=== PATIENT | male | born 1995 | race Two or more races ===

== ENCOUNTER 2017-04-26 20:02 | Emergency (ER) | payer OTHER ==
[2017-04-26 20:16] VITALS: RESP 18; TEMP 98.4
--- NOTE | 2017-04-26 21:46 | EDPHY ---
H & P Stated Complaint: Lightheaded, dizzy, since [place] 2 w[place]. HPI/ROS: HPI CHIEF COMPLAINT: Lightheadedness after running HISTORY OF PRESENT ILLNESS: This patient very pleasant 22-year-old male, denies any significant medical history is from [facility], he is a [employer] student, he went for 20 minutes this evening. He states shortly after he got lightheaded and dizzy. [place] like he was going to pass out. Denies chest pain shortness of breath. Denies pleuritic pain. Denies vomiting abdominal pain diarrhea. States this happened 2 other times in [facility]. He recently arrived to [place] 2 weeks ago. Denies any daily medications denies premature cardiac history. Past Medical History: No significant medical history Past Surgical History: No significant surgical history Social History: Denies daily use drugs alcohol tobacco products. From [facility]. [employer] student. Family History: Noncontributory ROS REVIEW OF SYSTEMS: A comprehensive 10 point review of systems is otherwise negative aside from elements mentioned in the history of present illness. Exam Constitutional appears well nontoxic, triage nursing summary reviewed, vital signs reviewed, awake/alert. Eyes normal conjunctivae and sclera, EOMI, PERRLA. HENT normal inspection, atraumatic, moist mucus membranes, no epistaxis, neck supple/ no meningismus, no raccoon eyes. Respiratory clear to auscultation bilaterally, normal breath sounds, no respiratory distress, no wheezing. Cardiovascular rate normal, regular rhythm, no murmur, no edema, distal pulses normal. Gastrointestinal soft, non-tender, no rebound, no guarding, normal bowel sounds, no distension, no pulsatile mass. Genitourinary no CVA tenderness. Musculoskeletal no midline vertebral tenderness, full range of motion, no calf swelling, no tenderness of extremities, no meningismus, good pulses, neurovascularly intact. Skin pink, warm, & dry, no rash, skin atraumatic. Neurologic awake, alert and oriented x 3, AAOx3, moves all 4 extremities equally, motor intact, sensory intact, CN II-XII intact, normal cerebellar, normal vision, normal speech. Psychiatric normal mood/affect. Heme/Lymph/Immune no lymphadenopathy. Differential Diagnosis: Includes but is not limited to in a particular order, dehydration, electrolyte disturbance, cardiac arrhythmia, altitude illness while running. Medical Decision Making: Plan for this patient full youth nutritional monitor, obtain EKG , IV establishment, IV fluid bolus, check electrolytes. IV hydration 1 L normal saline. Re-evaluate. Re-evaluation: 2300: Re-evaluation at this time patient resting comfortably no complaints. His EKG, blood work and chest x-ray been reviewed unremarkable. EKG interpretation by me on record in [employer] system. Impression time of EKG 2204 this is sinus rhythm rate of 66, diffuse ST elevation consistent with early Sasha pulp pattern. No acute ischemia appreciated this EKG. Troponin negative. D-dimer negative. Electrolytes appropriate. Patient has been on the youth nutritional monitor for multiple hours. No evidence of cardiac arrhythmia. He feels better after IV fluids. I recommend he stays well hydrated at this elevation. Patient understands return emergency room if he has any worsening symptoms questions or concerns. Source: Patient - Personal History Current Tetanus/Diphtheria Vaccine: Unsure Current Tetanus Diphtheria and Acellular Pertussis (TDAP): Unsure - Medical/Surgical History Hx Asthma: No Hx Chronic Respiratory Disease: No Hx Diabetes: No Hx Cardiac Disease: No Hx Renal Disease: No Hx Cirrhosis: No Hx Alcoholism: No Hx HIV/AIDS: No Hx Splenectomy or Spleen Trauma: No Other PMH: Denies. - Social History Smoking Status: Former smoker Constitutional: Initial Vital Signs Temperature (C) 36.9 C 04/26/17 20:12 Heart Rate 84 04/26/17 20:12 Respiratory Rate 18 04/26/17 20:12 Blood Pressure 149/70 H 04/26/17 20:12 O2 Sat (%) 92 04/26/17 20:12 O2 Delivery Mode Room Air Allergies/Adverse Reactions: No Known Allergies Allergy (Unverified 04/26/17 20:16) Home Medications: Medication Instructions Recorded NK [No Known Home Meds] 04/26/17 Medical Decision Making - Diagnostics Imaging Results: Imaging Impressions Chest X-Ray 04/26/17 21:48 Impression: Normal. - Data Points Laboratory Results: Laboratory Results 04/26/17 22:00 04/26/17 22:00 04/26/17 04/26/17 04/26/17 22:00 22:00 22:00 WBC 8.08 10^3/uL 10^3/uL (3.80-9.50) RBC 5.66 10^6/uL 10^6/uL (4.40-6.38) Hgb 16.6 g/dL g/dL (13.7-17.5) Hct 48.2 % % (40.0-51.0) MCV 85.2 fL fL (81.5-99.8) MCH 29.3 pg pg (27.9-34.1) MCHC 34.4 g/dL g/dL (32.4-36.7) RDW 12.1 % % (11.5-15.2) Plt Count 267 10^3/uL 10^3/uL (150-400) MPV 11.3 fL fL (8.7-11.7) Neut % (Auto) 66.9 % % (39.3-74.2) Lymph % (Auto) 26.0 % % (15.0-45.0) Avery % (Auto) 5.3 % % (4.5-13.0) Eos % (Auto) 1.0 % % (0.6-7.6) Baso % (Auto) 0.7 % % (0.3-1.7) Nucleat RBC Rel Count 0.0 % % (0.0-0.2) Absolute Neuts (auto) 5.40 10^3/uL 10^3/uL (1.70-6.50) Absolute Lymphs (auto) 2.10 10^3/uL 10^3/uL (1.00-3.00) Absolute Monos (auto) 0.43 10^3/uL 10^3/uL (0.30-0.80) Absolute Eos (auto) 0.08 10^3/uL 10^3/uL (0.03-0.40) Absolute Basos (auto) 0.06 10^3/uL 10^3/uL (0.02-0.10) Absolute Nucleated RBC 0.00 10^3/uL 10^3/uL (0-0.01) Immature Gran % 0.1 % % (0.0-1.1) Immature Gran # 0.01 10^3/uL 10^3/uL (0.00-0.10) D-Dimer 0.31 ug/mLFEU ug/mLFEU (0.00-0.50) Sodium 140 mEq/L mEq/L (134-144) Potassium 4.3 mEq/L mEq/L (3.5-5.2) Chloride 99 mEq/L mEq/L (97-110) Carbon Dioxide 28 mEq/l mEq/l (22-31) Anion Gap 13 mEq/L mEq/L (8-16) BUN 17 mg/dL mg/dL (7-23) Creatinine 0.9 mg/dL mg/dL (0.7-1.3) Estimated GFR > 60 Glucose 86 mg/dL mg/dL (70-100) Calcium 10.2 mg/dL mg/dL (8.5-10.4) Troponin I < 0.012 ng/mL ng/mL (0.000-0.034) Medications Given: Discontinued Medications Sodium Chloride (Ns) 1,000 mls @ 0 mls/hr IV EDNOW ONE; Wide Open PRN Reason: Protocol Stop: 04/26/17 21:49 Last Admin: 04/26/17 22:04 Dose: 1,000 mls Departure - Departure Disposition: Home, Routine, Self-Care Clinical Impression: Lightheadedness Condition: Good Instructions: Near Syncope (ED), Lightheadedness (ED) Additional Instructions: 1. Stay well-hydrated drink lots of fluids. 2. Return emergency room if develops worsening symptoms questions or concerns includes passing out. Referrals: NONE *PRIMARY CARE P,. [Primary Care Provider] - As per Instructions
[2017-04-26] MEDS ORDERED: NS 1,000 ML IV ONE (21:48)
--- NOTE | 2017-04-26 22:10 | CPEKG ---
Heart Rate: 65 RR Interval: 923 P-R Interval: 168 QRSD Interval: 96 QT Interval: 396 QTC Interval: 412 P Kingston: 57 QRS [place]: 57 T Wave Kingston: 56 EKG Severity - NORMAL ECG - EKG Impression: SINUS RHYTHM EKG Impression: ST ELEV, PROBABLE NORMAL EARLY REPOL PATTERN Electronically Signed By: Brock Yang 28-Apr-2017 15:40:32
[2017-04-26 22:21] LABS: % IMMATURE GRANULYOCYTES 0.1 % (0.0-1.1); ABSOLUTE IMMATURE GRANULOCYTES 0.01 10^3/uL (0.00-0.10); ADD DIFF? NO; ADD MORPH? NO; ADD SCAN? NO; ATYPICAL LYMPHOCYTE FLAG 10 (0-99); FRAGMENT RBC FLAG 0 (0-99); HEMATOCRIT 48.2 % (40.0-51.0); HEMOGLOBIN 16.6 g/dL (13.7-17.5); LEFT SHIFT FLG 0 (0-99); LIPEMIA HEMOLYSIS FLAG 90 (0-99); MEAN CELL HEMOGLOBIN 29.3 pg (27.9-34.1); MEAN CELL HEMOGLOBIN CONCENTR. 34.4 g/dL (32.4-36.7); MEAN CELL VOLUME 85.2 fL (81.5-99.8); MEAN PLATELET VOLUME 11.3 fL (8.7-11.7); PLATELET CLUMPS FLAG 20 (0-99); PLATELET COUNT 267 10^3/uL (150-400); RED BLOOD CELL COUNT 5.66 10^6/uL (4.40-6.38); RED CELL DISTRIBUTION WIDTH 12.1 % (11.5-15.2)
[2017-04-26 22:34] LABS: ANION GAP 13 mEq/L (8-16); CALCIUM 10.2 mg/dL (8.5-10.4); CARBON DIOXIDE 28 mEq/l (22-31); CHLORIDE 99 mEq/L (97-110); CREATININE 0.9 mg/dL (0.7-1.3); GLOMERULAR FILTRATION RATE > 60; GLUCOSE 86 mg/dL (70-100); POTASSIUM 4.3 mEq/L (3.5-5.2); SODIUM 140 mEq/L (134-144)
[2017-04-26 22:45] LABS: TROPONIN I < 0.012 ng/mL (0.000-0.034)
[2017-04-26 23:26] VITALS: BP 128/58; PULSE 65; O2SAT 99
== END 2017-04-26 23:26 | disposition home or self-care (01) ==
DX: R42 Dizziness and giddiness (principal); E86.9 Volume depletion, unspecified; Z87.891 Personal history of nicotine dependence

== ENCOUNTER 2018-06-06 13:10 | Emergency (ER) | payer OTHER ==
--- NOTE | 2018-06-06 14:03 | EDPHY ---
HPI/HX/ROS/PE/MDM Narrative: CHIEF COMPLAINT: Hit in head with soccer ball, dizziness HISTORY OF PRESENT ILLNESS: The patient is a healthy 23 y/o male who was hit in the head with soccer ball. He was playing with friends.. He was wearing glasses that caused a laceration to the left temporal region lateral to the left eye. He was dizzy for about 15 minutes after but denies loss of consciousness or falling. Patient denies any neck pain. No numbness or tingling in the arms or legs. He denies headache, nausea, chest pain, or any other associated symptoms. No fever, chills, chest pain, shortness of breath, palpitations, vomiting, diarrhea, urinary complaints, headache, lightheadedness. REVIEW OF SYSTEMS: Aside from elements discussed in the HPI, a comprehensive 10-point review of systems was reviewed and is negative. PAST MEDICAL HISTORY: Denies. Patient believes his tetanus is up-to-date. SOCIAL HISTORY: [employer], from [facility], student at [employer] VITAL SIGNS: Reviewed by me GENERAL: Well-developed, well-nourished, resting comfortably in no respiratory distress. HEENT: 1.5 cm partial thickness laceration, linearly just under the eyebrow on the left. Pupil equal round reactive to light. Extraocular movements intact. No nystagmus. Mouth: moist mucous membranes. No erythema or lesions. Neck: supple with no adenopathy. No tenderness to palpation. CHEST: Clear to auscultation. No tenderness. HEART: Regular rate and rhythm. EXTREMITIES: No trauma. No edema. Range of motion is normal throughout. NEURO: Alert and oriented x3. Cranial nerves 2-12 are intact. Normal motor and sensory in all 4 extremities. Normal gait. Conversant, alert. SKIN: Warm and dry, no rash. PSYCHIATRIC: Normal mentation, no agitation. ED Course: The patient presents with a laceration after getting hit in the head with a soccer ball while wearing glasses. The laceration is about 1.5 cm long and partial thickness. It was easily closed with skin glue. He denies any nausea, headache, vomiting, or other associated symptoms. I feel he is safe to return home. He agrees to this course of action. Follow up instructions and return precautions given. Procedure: Laceration repair. The 1.5 cm partial-thickness laceration on the left eyelid, just under the eyebrow, was cleaned and irrigated per nursing and tech documentation. Laceration was then draped and explored. There were no deep structures involved. The wound was repaired with skin glue. The wound repair was simple. The procedure was performed by myself. Patient is aware the laceration will have a scar. Feel patient is safe to be discharged with close head injury instructions. The he does not meet criteria for at min CT scanning in the setting of trauma. MDM: Differential diagnosis for the patient's head injury was considered including but not limited to concussion, skull fracture, intraparenchymal contusion, subarachnoid, subdural and epidural hematoma. General Time Seen by Provider: 06/06/18 13:50 Initial Vital Signs: Initial Vital Signs Temperature (C) 37 C 06/06/18 13:15 Heart Rate 73 06/06/18 13:15 Respiratory Rate 17 06/06/18 13:15 Blood Pressure 109/69 06/06/18 13:15 O2 Sat (%) 98 06/06/18 13:15 O2 Delivery Mode Room Air Allergies/Adverse Reactions: No Known Allergies Allergy (Verified 06/06/18 13:13) Home Medications: Medication Instructions Recorded NK [No Known Home Meds] 04/26/17 Departure - Departure Disposition: Home, Routine, Self-Care Clinical Impression: Glued skin wound Closed head injury Qualifiers: Encounter type: initial encounter Qualified Code(s): S09.90XA - Unspecified injury of head, initial encounter Condition: Good Instructions: Concussion (ED), Head Injury (ED), Skin Adhesive Care (ED) Additional Instructions: 1. Please care for your laceration as directed. Remember, no topical antibiotic creams. No soaking the wound in water. The skin glue will start come off within the next 3-4 days. 2. Please watch for signs of worsening head injury. These would include significant worsening headache, seizure, confusion, numbness or tingling in your arms or legs, or nausea vomiting. 3. If you have difficulty reading or looking at your phone or computer screen, discontinue activity and slowly introduce as tolerated. 4. Return to the emergency department if you begin vomiting or have any other worsening of condition. Referrals: Tracy Mathur MD [Medical Doctor] - As per Instructions [facility] [[facility]] - As per Instructions Report Scribed for: Rachelle Smith Report Scribed by: Callie Cox Date of Report: 06/06/18 Time of Report: 14:10 Physician Review and Approval Statement: Portions of this note were transcribed by a medical service representative. I personally performed a history, physical exam, medical decision making, and confirmed accuracy of information the transcribed note.
[2018-06-06] MEDS ORDERED: SKIN ADHESIVE (DERMABOND) 1 EACH TP ONE (14:28)
[2018-06-06 15:05] VITALS: BP 124/79
== END 2018-06-06 15:05 | disposition home or self-care (01) ==
PROC: 08QPXZZ Repair Left Upper Eyelid, External Approach (ICD-10-PCS; principal; 2018-06-06)
DX: S01.112A Laceration without foreign body of left eyelid and periocular area, initial encounter (principal); W21.02XA Struck by soccer ball, initial encounter; Y93.66 Activity, soccer; Y99.8 Other external cause status

== ENCOUNTER 2018-12-06 17:15 | Emergency (ER) | payer OTHER ==
--- NOTE | 2018-12-06 17:30 | EDPHY ---
General - History Smoking Status: Former smoker Time Seen by Provider: 12/06/18 17:30 Narrative: CLINICAL IMPRESSION: Fever, myalgias, sore throat- viral syndrome ASSESSMENT/PLAN: Patient is a 23-year-old male with no significant medical history who presents to the Emergency Department with 12 hrs of body aches, sore throat, nausea, mild headache and generally feeling unwell. Patient is febrile on arrival and noted to be mildly tachycardic. He is otherwise well appearing and in no acute distress, no signs of meningismus. Influenza negative, rapid strep negative. The patient was given a L of normal saline, Zofran, Toradol and Tylenol with improvement of his symptoms- complete resolution of his nausea and headache. I considered other etiologies to include meningitis, encephalitis, pneumonia, sinusitis and pharyngitis however low clinical suspicion. The patient had no signs of meningismus in the emergency department, I discussed LP however patient refused as he is feeling much better. I suspect his symptoms are secondary to viral illness. He will continue to be treated symptomatically and is instructed to followup with PCP for reevaluation within the next 2-3 days. On re-examination and prior to discharge this patient is stable and well- appearing, his abdomen is soft and non-tender, no petechial rash and the neck supple. He was afebrile and his heart rate normalized into the 80s. A PCP referral was provided. Conservative return precautions discussed-he will return for significantly worsening symptoms, high fevers, neck stiffness, difficulty swallowing, chest pain, shortness of breath, signs of dehydration or for any other concerning symptom. The patient verbalizes understanding and he is in agreement with this plan. DIFFERENTIAL DX: Adult fever including but not limited to viral syndromes including influenza, urinary tract infection, pneumonia and sepsis. ED COURSE: 1815: Case discussed with Dr. Smith, she is evaluating this patient at this time. 1831: Influenza negative. Rapid strep still pending. 1909: On repeat examination the patient is well-appearing, he reports that he is feeling much better. He denies any further headache and states that his body aches are better. There is no evidence of meningismus, no petechial rash, his neck is supple, his abdomen is soft and nontender to palpation. Discussed LP with patient CHIEF COMPLAINT: Myalgias, sore throat, nausea, decreased appetite HPI: Patient is a 23-year-old male with no significant medical history who presents to the Emergency Department with 12 hr of body aches, sore throat, nausea, mild headache and generally feeling unwell. Patient reports they woke up early this morning with generalized body aches, mild sore throat as well as mild nausea. He has been experiencing a mild frontal intermittent headache throughout the day. He has had headaches like this before. He feels like his heart is racing however denies any palpitations or chest pain. His nausea did worsen throughout the day and felt like he was going to vomit however denies any vomiting. He is unsure if he has a fever however feels warm, denies any chills or rigors. He denies any runny nose, congestion or cough. He denies any difficulty swallowing, neck stiffness or lumps in neck. He describes general abdominal discomfort however denies any abdominal pain. He denies any urinary symptoms to include dysuria, hematuria or frequency. Bowel movements have been normal, last 1 yesterday. 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 He denies any recent international travel or antibiotic use. PMH: Denies Family History: Not contributory Social History: Former smoker, denies any illicit drug use REVIEW OF SYSTEMS: All other systems negative Constitutional: Feels warm, decreased appetite Eyes: No discharge, vision change ENT: Sore throat. No congestion, ear pain. Cardiovascular: No chest pain, no palpitations. Respiratory: No cough, no shortness of breath. Gastrointestinal: Nausea, upset stomach. No abdominal pain, no vomiting, diarrhea. Genitourinary: No hematuria, dysuria, flank pain. Musculoskeletal: Myalgias. No neck stiffness, joint swelling or joint pain. Skin: No rashes, color change. Neurological: Mild headache. No dizziness, weakness. PHYSICAL EXAM: General Appearance: Alert, well-appearing, no acute distress. HENT: Normocephalic, atraumatic. Bilateral external ears are normal. Bilateral tympanic membranes are normal with pearly tuttle reflex. Nares are clear, mucosa is pink. Oropharynx is clear, uvula is midline. There is no tonsillar enlargement or exudate. The dentition is normal. Eyes: PERRLA, no acute vision change, nystagmus, swelling, discharge, pain or photosensitivity. Conjunctiva pink, no pallor or injection. Neck: Supple, nontender, no lymphadenopathy, no midline pain, FROM, no meningismus. Respiratory: There are no retractions, lungs are clear to auscultation. Cardiac: Mild tachycardia, no murmurs or gallops. Gastrointestinal: Abdomen is soft, nontender, bowel sounds normal, no masses/ hernia, no rigidity, guarding or focal peritoneal findings. Neurological: Alert and oriented x 3, CN 2-12 grossly intact, normal gait no ataxia, DTR's intact, normal sensation and strength Skin: Warm, dry, no rashes, no nodules on palpation. Musculoskeletal: Extremities are symmetrical, full range of motion, no tenderness, deformity, swelling, or erythema. Psychiatric: Patient is oriented X 3, there is no agitation. MEDICAL DECISION MAKING: Patient was seen independently. Secondary supervising physician at time of evaluation was Dr. Smith, she also evaluated this patient. Diagnosis: Fever, myalgias, ST- viral syndrome. New, requires workup Summary: See Assessment and Plan for summary of ED visit Clinical lab tests: ordered / reviewed. Independent visualization of images, tracing, or specimens: Yes / No. Decision to obtain medical records or history from someone other than the patient: No Review / Summarize previous medical records: Yes Discussed patient with another provider: Yes, Dr. Smith Patient Progress: Stable, discharge. (Ama Gregory) Discussion: I evaluated and participated in the management of the patient. I also evaluated the patient independently. My co-signature indicates that I have reviewed this chart and I agree with the findings and plan of care as documented. My personal H&P findings include: 23-year-old male presents emergency department with 24 hr history fevers, body aches, headache, and sore throat. Denies a cough. Looks well on examination. Alert, conversant, febrile. Lungs are clear to auscultation. Heart is tachycardic. Pharynx is slightly erythematous but no tonsillar exudates or enlargement. Neck is supple, no meningismus. Negative Kernig's. Negative Brudzinski's. Neurologically intact , mentating well, bright, oriented x4. IV placed and patient received normal saline. Labs are largely unremarkable, specifically, negative strep screen and negative influenza. Patient improved with antipyretics. Discharged with presumed diagnosis of viral syndrome. Will return if worse, (Rachelle Smith) - Objective Vital Signs: Initial Vital Signs Temperature (C) 39.4 C H 12/06/18 17:19 Heart Rate 100 12/06/18 17:19 Respiratory Rate 18 12/06/18 17:19 Blood Pressure 121/51 H 12/06/18 17:19 O2 Sat (%) 98 12/06/18 17:19 O2 Delivery Mode Room Air Allergies/Adverse Reactions: No Known Allergies Allergy (Verified 12/06/18 17:19) Home Medications: Medication Instructions Recorded NK [No Known Home Meds] 04/26/17 Medications Given: Discontinued Medications Acetaminophen (Tylenol) 1,000 mg PO EDNOW ONE Stop: 12/06/18 17:40 Last Admin: 12/06/18 17:57 Dose: 1,000 mg Sodium Chloride (Ns) 1,000 mls @ 0 mls/hr IV ONCE ONE PRN Reason: Wide Open Stop: 12/06/18 17:40 Last Admin: 12/06/18 17:58 Dose: 1,000 mls Ketorolac Tromethamine (Toradol) 30 mg IVP EDNOW ONE Stop: 12/06/18 17:40 Last Admin: 12/06/18 17:57 Dose: 30 mg Departure - Departure Disposition: Home, Routine, Self-Care Clinical Impression: Fever, Myalgia, Viral syndrome Condition: Good Instructions: Fever in Adults (ED) Additional Instructions: DISCHARGE INSTRUCTIONS FROM YOUR DOCTOR Thank you for visiting our emergency department today. Please keep in mind that discharge from the emergency department does not mean that there is nothing wrong - it simply means that we have not identified an emergency condition that requires further evaluation or treatment in the hospital. You should always plan to follow up with primary care for re-evaluation of your condition in the next 2-3 days. Rest, push non-diuretic, non-caffeinated fluids, consume a healthy diet, all to help support your immune system fight infection. For pain control: You may take Tylenol, I recommend 500-1000 mg every 6-8 hours as needed. Take with food and a full glass of water. Stop taking if this is upsetting her stomach. Do not exceed 4000 mg in a 24 hr period. You may also take ibuprofen, recommend 400 mg every 6 hr. Take with food and a full glass of water. Stop taking if this upsets her stomach. Do not exceed 2400 mg in a 24 hr period. You were given Toradol in the emergency department, please do not take ibuprofen or other anti-inflammatories for at least 8 hr. As discussed, in the setting of a viral illness, you may develop a secondary bacterial infection, requiring an antibiotic. Watch for new or changing symptoms ie: new ear pain or drainage, increasing cough, shortness of breath, high fever, or any other concerning symptoms. Schedule a follow-up appointment with your primary care physician in the next 2- 3 days for re-evaluation, sooner for any new concerns. Return for high fever, shaking chills, severe headache, facial redness or swelling, drainage from your ears, difficulty breathing or swallowing, throat tightness, drooling, change in voice, inability to open your mouth normally, severe neck pain, neck stiffness, shortness of breath, wheezing, noisy breathing , coughing up blood, chest pain, vomiting, diarrhea, bloody stools, decreased urine output or other concerns for dehydration, bloody urine, rash, dizziness, weakness, fainting, or for any other new, worsening or worrisome symptoms. People present with illnesses and injuries in different ways, and it is always possible that we have missed something. You may always return for re-evaluation if symptoms worsen or if they are not improving or if you develop new/different symptoms. Again, thank you for choosing our emergency department. We hope that you feel better. Referrals: Linh Almanza MD [Medical Doctor] - As per Instructions
[2018-12-06] MEDS ORDERED: NS 1,000 ML IV ONE (17:39)
[2018-12-06] MEDS ORDERED: KETOROLAC 30 MG/1 ML SDV IVP ONE (17:39)
[2018-12-06] MEDS ORDERED: ACETAMINOPHEN 500 MG TAB PO ONE (17:39)
[2018-12-06] MEDS ORDERED: ONDANSETRON 4 MG/2 ML VIAL IVP PRN (18:13)
[2018-12-06 19:13] VITALS: BP 113/45
== END 2018-12-06 19:30 | disposition home or self-care (01) ==
DX: B34.9 Viral infection, unspecified (principal); M79.10 Myalgia, unspecified site; R50.9 Fever, unspecified
CPT/HCPCS: 96374; J1885